=== PATIENT | female | born 1955 | race Hispanic/Latino ===

== ENCOUNTER 2020-12-05 10:38 | Observation (INO) | payer MEDICARE ==
[~2020-12-05] VITALS: Ht 165.1 cm; Wt 70.8 kg
[2020-12-05 11:53] LABS: BASOPHILS # (AUTO) 0.1 (0.0-0.1); BASOPHILS % 0.7 % (0.0-1.0); EOSINOPHILS # (AUTO) 0.2 (0.0-0.4); EOSINOPHILS % 3.2 % (0.0-6.0); HEMATOCRIT 46.7 % (34.2-44.1); HEMOGLOBIN 14.6 g/dL (12.0-16.0); LYMPHOCYTES # (AUTO) 2.2 (1.0-3.2); LYMPHOCYTES % 30.3 % (18.0-39.1); MEAN CORPUSCULAR HEMOGLOBIN 28.5 pg (28-32); MEAN CORPUSCULAR HGB CONC 31.3 g/dL (31-35); MONOCYTES # (AUTO) 0.6 (0.2-0.8); MONOCYTES % 8.3 % (4.4-11.3); NEUTROPHILS # (AUTO) 4.2 (2.1-6.9); NEUTROPHILS % 57.2 % (38.7-80.0); PLATELET COUNT 265 x10e3/uL (140-360); RED BLOOD COUNT 5.13 x10e6/uL (3.6-5.1); RED CELL DISTRIBUTION WIDTH 13.4 % (11.7-14.4)
[2020-12-05] MEDS ORDERED: FAMOTIDINE 20 MG/2 ML VIAL IV STA (12:29)
[2020-12-05] MEDS ORDERED: KETOROLAC TROMETHAMINE 30 MG/ML VIAL IV STA (12:29)
[2020-12-05] MEDS ORDERED: FAMOTIDINE 20 MG/2 ML VIAL IV ONE (13:22)
[2020-12-05] MEDS ORDERED: KETOROLAC TROMETHAMINE 30 MG/ML VIAL ONE (13:22)
[2020-12-05] MEDS ORDERED: NITROGLYCERIN 0.4 MG SUBL SL PRN (14:45)
[2020-12-05] MEDS ORDERED: ONDANSETRON HCL INJ 2MG/ML 2ML 2 MG/ML VIAL IV PRN (14:45)
[2020-12-05] MEDS ORDERED: SODIUM CHLORIDE FLUSH 10 ML SYR INJ PRN (14:45)
[2020-12-05] MEDS ORDERED: ASPIRIN 81 MG CHEW TAB PO ONE (14:45)
[2020-12-05] MEDS ORDERED: FAMOTIDINE 20 MG TAB PO SCH (14:45)
[2020-12-05 17:05] VITALS: BP 137/57
[2020-12-05] MEDS ORDERED: ASPIRIN 81 MG CHEW TAB ONE (18:01)
[2020-12-05] MEDS ORDERED: LISINOPRIL2.5 MG PO (18:16)
[2020-12-05 18:21] VITALS: BP 137/57
[2020-12-05 18:22] VITALS: BP 137/57
[2020-12-05] MEDS ORDERED: NEURONTIN100 MG PO (18:52)
[2020-12-05] MEDS ORDERED: LOVAZA1 GM PO (18:52)
[2020-12-05] MEDS ORDERED: LEVOTHYROXINE50 MCG PO (18:52)
[2020-12-05] MEDS ORDERED: PANTOPRAZOLE SO40 MG PO (18:52)
[2020-12-05] MEDS ORDERED: SUCRALFATE1 GM PO (18:52)
[2020-12-05 19:18] LABS: CREATINE KINASE MB 2.9 ng/mL (0-5.0)
[2020-12-05 20:20] VITALS: BP 112/59
[2020-12-05 20:45] VITALS: BP 112/59
[2020-12-05] MEDS ORDERED: ACETAMINOPHEN 325 MG TAB PO ONE (23:45)
[2020-12-06] VITALS: BP 116/68
[2020-12-06 03:24] LABS: CREATINE KINASE MB 2.6 ng/mL (0-5.0)
[2020-12-06 03:41] LABS: ANION GAP 14.4 mmol/L (8-16); CALCIUM 8.7 mg/dL (8.4-10.2); CREATININE, SERUM 1.68 mg/dL (0.57-1.11); POTASSIUM 4.4 mmol/L (3.5-5.1)
[2020-12-06 04:00] VITALS: BP 113/61
[2020-12-06 07:20] VITALS: BP 137/68
[2020-12-06 07:31] VITALS: BP 137/68
[2020-12-06] MEDS ORDERED: FAMOTIDINE 20 MG TAB PO SCH (08:00)
[2020-12-06] MEDS ORDERED: LISINOPRIL 2.5 MG TAB PO PRN (08:30)
[2020-12-06] MEDS ORDERED: ASPIRIN 81 MG ENTERIC COATED PO SCH (09:00)
[2020-12-06] MEDS ORDERED: OMEGA 3 POLYUNSAT FATTY ACIDS 1000 MG SOFTGEL PO SCH (09:15)
[2020-12-06] MEDS ORDERED: GABAPENTIN 100 MG CAP PO SCH (09:15)
[2020-12-06] MEDS ORDERED: LEVOTHYROXINE SODIUM 50 MCG TAB PO SCH (09:15)
[2020-12-06 11:39] VITALS: BP 124/58
[2020-12-06 14:23] LABS: CREATINE KINASE MB 3.1 ng/mL (0-5.0)
[2020-12-07] MEDS ORDERED: PANTOPRAZOLE SOD 40 MG TABEC PO SCH (06:00)
== END 2020-12-06 14:14 | disposition home or self-care (01) ==
LOC: FSED 11:10 → ERHOLD 15:30 → MED/SURG 16:58
PROVIDERS: ADMIT Internal Medicine; ATTEND Internal Medicine
DX: R00.1 Bradycardia, unspecified (principal); R07.89 Other chest pain; K21.9 Gastro-esophageal reflux disease without esophagitis; E03.9 Hypothyroidism, unspecified; I10 Essential (primary) hypertension; Z20.822 Contact with and (suspected) exposure to COVID-19
CPT/HCPCS: 36415 ×2; 71046; 80048; 80053; 80061; 81003; 82550 ×2; 82553 ×2; 84484 ×2; 85025; 93005; 93306; 96374; 96376; 99284; G0378 ×2; J1885; U0002